=== PATIENT | male | born 1940 | race Caucasian/White ===

== ENCOUNTER → 2019-12-27 15:08 | Outpatient (CLI) | payer MEDICARE, OTHER, SELFPAY ==
[2019-12-27 17:24] LABS: Prostate Specific Ag, Diagnost 0.542 ng/ml (0.0-4.0)
== END ==
PROVIDERS: Visit Provider Urology
DX: N40.0 Benign prostatic hyperplasia without lower urinary tract symptoms (principal)
CPT/HCPCS: 36415; 84153